=== PATIENT | female | born 1940 | race Caucasian/White ===

== ENCOUNTER 2017-09-02 04:37 | Emergency (ER) | payer MEDICARE ==
[2017-09-02] MEDS: diphenhydrAMINE INJ 50MG/ML VIAL (J1200) IV (06:54)
[2017-09-02] MEDS: dexameTHASONE 20 MG/5 ML VIAL (J1100) IV (06:54)
== END 2017-09-02 07:28 | disposition home or self-care (01) ==
LOC: M ED 04:37
DX: T78.40XA Allergy, unspecified, initial encounter (principal); Y92.9 Unspecified place or not applicable; Y93.9 Activity, unspecified
CPT/HCPCS: J1200

== ENCOUNTER 2024-10-05 14:42 | Inpatient (IN) | payer MEDICARE ==
[~2024-10-05] VITALS: Ht 165.1 cm; Wt 61.1 kg
[2024-10-05] VITALS (29 sets, daily range): BP systolic 134–175; BP diastolic 56–77; TEMP 96.2–98.6; O2SAT 95–100
[~2024-10-05 14:42] MED LIST: PRED20TA PO
[2024-10-05 15:09] LABS: BASO # 0.0 10^3/uL (0.0-0.2); BASO % 0.3 % (0.0-1.0); EOS # 0.0 10^3/uL (0.0-0.5); EOS % 0.6 % (0.0-3.0); LYMPH # 1.4 10^3/uL (1.5-5.0); LYMPH % 20.9 % (24.0-44.0); MONO # 0.3 10^3/uL (0.0-0.8); MONO % 5.3 % (2.0-8.0); NEUTROPHILS # 4.7 10^3/uL (1.5-8.5); NEUTROPHILS % 72.7 % (36.0-66.0); PLATELET COUNT, AUTOMATED 271 10^3/uL (150-450)
[2024-10-05] MEDS ORDERED: ISOVUE-370 76% 100 ML VIAL As Ordered ONE (15:17)
[2024-10-05 15:25] LABS: INR 0.92
[2024-10-05 15:56] LABS: CK-MB VALUE MASS < 1.0 NG/ML (<3.6)
[2024-10-05 15:59] LABS: CPK CREATINE PHOSPHOKINASE 40 U/L (34-145)
[2024-10-05] MEDS: TENECTEPLASE 50 MG/10 ML VIAL IVP ONE (16:38)
[2024-10-05] MEDS ORDERED: LOPE2TAB12 PO (17:41)
[2024-10-05] MEDS ORDERED: EPIN0.3I11 IM (17:41)
[2024-10-05] MEDS ORDERED: HOME MED LIST COMPLETE! XX SCH (17:45)
[2024-10-05] MEDS: D5W/LR 1,000 ML IV SCH (18:20)
[2024-10-05] MEDS: ATORVASTATIN 20 MG TAB PO SCH (21:00)
[2024-10-05] MEDS ORDERED: SODIUM CHLORIDE 0.9% INJ 10 ML SYR IV ONE ×2 (22:00)
[2024-10-06] VITALS (28 sets, daily range): BP systolic 143–199; BP diastolic 64–90; TEMP 97.2–98.5; O2SAT 94–100
[2024-10-06] MEDS: hydrALAZINE 20 MG/ML 1 ML VIAL IV PRN (13:10)
[2024-10-06] MEDS: amLODIPine 5 MG TAB PO SCH (17:53)
[2024-10-06] MEDS: ASPIRIN 81 MG ENTERIC TABLET PO SCH (17:53)
[2024-10-06] MEDS: ONDANSETRON 4MG 2ML VIAL IV PRN (18:19)
[2024-10-07] VITALS (12 sets, daily range): BP systolic 124–168; BP diastolic 57–75; TEMP 97.4–98.3; O2SAT 93–97
[2024-10-07 06:09] LABS: CHOLESTEROL LEVEL 223.0 MG/DL (<200); CHOLESTEROL RISK RATIO 3.98 (<5); LDL CHOLESTEROL 151.3 MG/DL (<100); NON-HDL-C 167.1 MG/DL; TRIGLYCERIDES LEVEL 79.0 MG/DL (<150)
[2024-10-07 06:35] LABS: ESTIMATED AVERAGE GLUCOSE 97.0 MG/DL (60-110)
[2024-10-07] MEDS: CLOPIDOGREL 75 MG TAB PO SCH (10:11)
[2024-10-07 11:32] LABS: ALT/SGPT 15.0 U/L (7.0-40); AST/SGOT 19.0 U/L (<34); CALCIUM LEVEL 9.5 MG/DL (8.3-10.6); CARBON DIOXIDE LEVEL 28.0 MMOL/L (20-31); CHLORIDE LEVEL 104.0 MMOL/L (98-107); CREATININE FOR GFR 0.72 MG/DL (0.55-1.30); GLOMERULAR FILTRATION RATE 81.9 (>32); POTASSIUM SERUM 4.1 MMOL/L (3.5-5.1); SODIUM LEVEL 141.0 MMOL/L (136-145)
[2024-10-07 11:34] LABS: VITAMIN B12 LEVEL 405.0 PG/ML (211-911)
[2024-10-07] MEDS: LR 1,000 ML IV SCH (14:20)
[2024-10-08] VITALS (7 sets, daily range): BP systolic 137–172; BP diastolic 69–97; TEMP 97.9–99.2; O2SAT 94–97
[2024-10-09 03:55] VITALS: BP 164/70; TEMP 97.9; O2SAT 95
[2024-10-09 12:00] VITALS: BP 164/70; TEMP 97.9; O2SAT 97
[2024-10-09 20:30] VITALS: BP 136/73; TEMP 98.1; O2SAT 96
[2024-10-10 04:00] VITALS: BP 160/72; TEMP 97.7; O2SAT 96
[2024-10-10 12:29] VITALS: BP 133/60; TEMP 98.1; O2SAT 96
[2024-10-10] MEDS: IRBESARTAN 150 MG TAB PO SCH (12:34)
[2024-10-10] MEDS: HEPARIN SOD 5000 UNITS/ML 1 ML VIAL/SYRINGE SQ SCH (20:49)
[2024-10-10 21:00] VITALS: BP 147/65; TEMP 98.1; O2SAT 95
[2024-10-11 04:05] VITALS: BP 135/67; TEMP 97.9; O2SAT 94
[2024-10-11 06:54] LABS: BASO # 0.0 10^3/uL (0.0-0.2); BASO % 0.4 % (0.0-1.0); EOS # 0.1 10^3/uL (0.0-0.5); EOS % 1.7 % (0.0-3.0); LYMPH # 1.7 10^3/uL (1.5-5.0); LYMPH % 24.4 % (24.0-44.0); MONO # 0.6 10^3/uL (0.0-0.8); MONO % 8.6 % (2.0-8.0); NEUTROPHILS # 4.6 10^3/uL (1.5-8.5); NEUTROPHILS % 64.6 % (36.0-66.0); PLATELET COUNT, AUTOMATED 248 10^3/uL (150-450)
[2024-10-11 07:06] LABS: HBVCOREDIFF1 Negative (Negative); HBVCOREDIFF2 Negative (Negative)
[2024-10-11 07:28] LABS: CALCIUM LEVEL 9.2 MG/DL (8.3-10.6); CARBON DIOXIDE LEVEL 26.0 MMOL/L (20-31); CHLORIDE LEVEL 105.0 MMOL/L (98-107); CREATININE FOR GFR 0.63 MG/DL (0.55-1.30); GLOMERULAR FILTRATION RATE 86.9 (>32); POTASSIUM SERUM 4.1 MMOL/L (3.5-5.1); SODIUM LEVEL 142.0 MMOL/L (136-145)
[2024-10-11 12:00] VITALS: BP 130/64; TEMP 98.1; O2SAT 96
[2024-10-11 20:23] VITALS: BP 141/66; TEMP 97.9; O2SAT 95
[2024-10-12 04:15] VITALS: BP 137/60; TEMP 97.5; O2SAT 96
[2024-10-12 06:50] LABS: BASO # 0.0 10^3/uL (0.0-0.2); BASO % 0.4 % (0.0-1.0); EOS # 0.1 10^3/uL (0.0-0.5); EOS % 1.2 % (0.0-3.0); LYMPH # 1.4 10^3/uL (1.5-5.0); LYMPH % 19.5 % (24.0-44.0); MONO # 0.6 10^3/uL (0.0-0.8); MONO % 7.9 % (2.0-8.0); NEUTROPHILS # 5.2 10^3/uL (1.5-8.5); NEUTROPHILS % 70.7 % (36.0-66.0); PLATELET COUNT, AUTOMATED 278 10^3/uL (150-450)
[2024-10-12 07:18] LABS: CALCIUM LEVEL 8.8 MG/DL (8.3-10.6); CARBON DIOXIDE LEVEL 28.0 MMOL/L (20-31); CHLORIDE LEVEL 104.0 MMOL/L (98-107); CREATININE FOR GFR 0.67 MG/DL (0.55-1.30); GLOMERULAR FILTRATION RATE 85.6 (>32); POTASSIUM SERUM 4.0 MMOL/L (3.5-5.1); SODIUM LEVEL 141.0 MMOL/L (136-145)
[2024-10-12 12:00] VITALS: BP 111/50; TEMP 97.9; O2SAT 56
[2024-10-12 19:23] VITALS: BP 131/65; TEMP 98.1; O2SAT 96
[2024-10-13 05:00] VITALS: BP 128/65; TEMP 97.9; O2SAT 97
[2024-10-13 06:37] LABS: BASO # 0.0 10^3/uL (0.0-0.2); BASO % 0.5 % (0.0-1.0); EOS # 0.1 10^3/uL (0.0-0.5); EOS % 1.7 % (0.0-3.0); LYMPH # 1.8 10^3/uL (1.5-5.0); LYMPH % 28.7 % (24.0-44.0); MONO # 0.6 10^3/uL (0.0-0.8); MONO % 8.9 % (2.0-8.0); NEUTROPHILS # 3.8 10^3/uL (1.5-8.5); NEUTROPHILS % 60.0 % (36.0-66.0); PLATELET COUNT, AUTOMATED 260 10^3/uL (150-450)
[2024-10-13 07:23] LABS: CALCIUM LEVEL 9.2 MG/DL (8.3-10.6); CARBON DIOXIDE LEVEL 22.0 MMOL/L (20-31); CHLORIDE LEVEL 107.0 MMOL/L (98-107); CREATININE FOR GFR 0.55 MG/DL (0.55-1.30); GLOMERULAR FILTRATION RATE 89.8 (>32); POTASSIUM SERUM 4.5 MMOL/L (3.5-5.1); SODIUM LEVEL 142.0 MMOL/L (136-145)
[2024-10-13 09:48] VITALS: BP 116/62; O2SAT 97
[2024-10-13 11:47] VITALS: BP 133/65; TEMP 97.7; O2SAT 99
[2024-10-13 20:39] VITALS: BP 140/59; TEMP 98.1; O2SAT 95
[2024-10-14 05:02] VITALS: BP 133/59; TEMP 97.7; O2SAT 96
[2024-10-14 10:47] VITALS: BP 126/56
[2024-10-14 12:00] VITALS: BP 147/69; TEMP 98.1; O2SAT 98
[2024-10-14] MEDS ORDERED: SENNA 8.6 MG TAB PO PRN (15:45)
[2024-10-14] MEDS ORDERED: ATROPINE SULFATE 1% OPHTH SOLN 2 ML BTL SL PRN (15:45)
[2024-10-14] MEDS ORDERED: MIRALAX *UNIT DOSE* 17 GM PACKET PO PRN (15:45)
[2024-10-14] MEDS ORDERED: LORazepam 0.5 MG TAB PO PRN (15:45)
[2024-10-14] MEDS ORDERED: ONDANSETRON 4MG ORAL DISINTEGRATING TAB PO PRN (15:45)
[2024-10-14] MEDS ORDERED: POLYVINYL ALCOHOL OPHTH SOLN 15ML (LIQUITEARS) OU PRN (15:45)
[2024-10-14] MEDS ORDERED: SALIVA SUBSTITUTE BTL MT PRN (15:45)
[2024-10-14] MEDS ORDERED: GLYCOPYRROLATE INJ 0.2 MG/ML 2 ML VIAL IV PRN (15:45)
[2024-10-14] MEDS ORDERED: MORPHINE 10 MG/0.5 ML ORAL CONCENTRATE SOLUTION U/D SL PRN (15:45)
[2024-10-14] MEDS: ACETAMINOPHEN 325 MG TAB PO PRN (20:17)
[2024-10-14 21:22] LABS: HEPATITIS BE ANTIBODY Nonreactive (NON REACTIV); HEPATITIS BE ANTIGEN Nonreactive (NON REACTIV)
[2024-10-17 17:10] LABS: VITAMIN B6,PYRIDOXAL PHOSPHATE 4.6 ng/mL (2.1-21.7)
[2024-10-19] MEDS ORDERED: HYOS125TA PO (19:24)
[2024-10-19] MEDS ORDERED: ACET32TAB PO (19:24)
[2024-10-19] MEDS ORDERED: MOUKOT60 MT (19:24)
[2024-10-19] MEDS ORDERED: ONDA-282 PO (19:24)
[2024-10-19] MEDS ORDERED: ATIV1TAB10 PO (19:24)
[2024-10-19] MEDS ORDERED: MIRA33506 PO (19:24)
[2024-10-19] MEDS ORDERED: SENN18TA PO (19:24)
[2024-10-19] MEDS ORDERED: POLY1.4S OU (19:24)
[2024-10-19] MEDS ORDERED: AVAP150T31 PO (19:24)
[2024-10-19] MEDS ORDERED: MORP1SOL5 PO (19:24)
[2024-10-19] MEDS ORDERED: ATRO2DRO4 SL (19:25)
== END 2024-10-20 08:35 | DRG 63 ==
LOC: M ED 14:42 → M ED INP 18:01 → M ICU 19:34 → M MSPAV 10-08 17:09
PROVIDERS: ADMIT Internal Medicine Pulmonary Disease; ATTEND Internal Medicine Nephrology
PROC: 3E03317 Introduction of Other Thrombolytic into Peripheral Vein, Percutaneous Approach (ICD-10-PCS; principal; 2024-10-05)
PROC: B246ZZZ Ultrasonography of Right and Left Heart (ICD-10-PCS; 2024-10-06)
DX: I63.412 Cerebral infarction due to embolism of left middle cerebral artery (principal); Z66 Do not resuscitate; R47.01 Aphasia; I10 Essential (primary) hypertension; R91.8 Other nonspecific abnormal finding of lung field; R29.810 Facial weakness; E78.5 Hyperlipidemia, unspecified; Z91.030 Bee allergy status; Z88.2 Allergy status to sulfonamides; Z77.22 Contact with and (suspected) exposure to environmental tobacco smoke (acute) (chronic); F03.90 Unspecified dementia, unspecified severity, without behavioral disturbance, psychotic disturbance, mood disturbance, and anxiety